=== PATIENT | male | born 1980 | race Caucasian/White ===

== ENCOUNTER 2023-06-20 08:00 | Emergency (ER) | payer SELFPAY ==
[2023-06-20 08:10] VITALS: BP 152/87; PULSE 95; RESP 20; TEMP 36.9; O2SAT 95; BMI 33.1
--- NOTE | 2023-06-20 08:29 | EXP.UTC ---
Discharge Plan Disposition Patient Disposition: Home, Self-Care Condition: Good Prescriptions Prescriptions: New olopatadine [Pataday Once Daily Relief] 0.2 % drops 1 drp ophthalmic (eye) DAILY PRN (Reason: itching) Qty: 2.5 0RF benzonatate 100 mg capsule 100 mg PO TID PRN (Reason: cough) Qty: 30 0RF Referrals Follow up/Referrals: Víctor Lopez [Primary Care Provider] - See instructions Activity Restrictions/Add. Instructions Additional Instructions/Restrictions: May return to work tomorrow. Use medication as directed. Keep hands away from eyes. Clinical Impressions Clinical Impression: Upper respiratory infection, acute, Allergic conjunctivitis of right eye Stand Alone Forms Stand Alone Forms: Work/School Release Instructions Patient Instructions: DI for Viral Upper Respiratory Infection -- Adult, DI for Conjunctivitis Discharge ED Provider: Lindsey Briones [facility] General Stated complaint: possible pink eye Mode of Arrival: Ambulatory Source of Information: Patient Limitations: No Limitations Time Seen by Provider: 06/20/23 08:12 Description of Symptoms (Recalled from Triage Doc. by RN): Pt has itchy, watery, and swollen in right eye. HEENT Symptoms (Recalled from RN notes): Yes Resp Symptoms (Recalled from RN notes): No Skin Symptoms (Recalled from RN notes): No MS Symptoms (Recalled from RN notes): No Functional Status (Recalled from RN notes): n/a History of Present Illness Provider Complaint: Pt relates that he has been sick with cough, congestion and malaise for the past several days and is now feeling better. He reports that his right eye started itching and watering yesterday and is swollen today. Related Data Previous Rx's Medication Instructions Recorded benzonatate 100 mg capsule 100 mg PO TID PRN cough #30 caps 06/20/23 olopatadine 0.2 % eye drops 1 drp ophthalmic (eye) DAILY PRN 06/20/23 (Pataday Once Daily Relief) itching #2.5 mL Allergies Allergy/AdvReac Type Severity Reaction Status Date / Time No Known Allergies Allergy Verified 06/20/23 08:16 Worker's Comp Is this a Worker's Comp case?: No [facility] Disclaimer: The information contained in this section may have been updated after the patient was seen, as this information can be updated by other users. Social History Smoking Status: Current every day smoker alcohol intake: current current occupational status: employed Travel in the last 8 weeks: Inside the [place] ROS Obtained: Yes All systems reviewed & no additional complaints except as documented Constitutional Constitutional: Reports system reviewed and no additional complaints, except as documented and Reports malaise Eyes Eyes: Reports itchy eyes and Reports sensitivity to light ENT Ears, Nose, Mouth, and Throat: Reports system reviewed and no additional complaints, except as documented and Reports nasal discharge Cardiovascular Cardiovascular: Reports system reviewed and no additional complaints, except as documented Respiratory Respiratory: Reports system reviewed and no additional complaints, except as documented Gastrointestinal Gastrointestingal: Reports system reviewed and no additional complaints, except as documented Genitourinary Male Genitourinary: Reports system reviewed and no additional complaints, except as documented Musculoskeletal Musculoskeletal: Reports system reviewed and no additional complaints, except as documented Integumentary/Breasts Skin/Breast: Reports system reviewed and no additional complaints, except as documented Neurologic Neurologic: Reports system reviewed and no additional complaints, except as documented Endocrine Endocrine: Reports system reviewed and no additional complaints, except as documented Hematologic/Lymphatic Henatologic/Lymphatic: Reports system reviewed and no additional complaints, except as documented Allergic/Immunologic Allergic/Immunologic: Reports itchy eyes and Reports seasonal rhinorrhea Physical Exam General General appearance: alert and in no apparent distress Head Head exam: atraumatic and normocephalic Eye Eye exam: Present conjunctival redness, discharge and periorbital swelling Expanded Eye Exam Eyelids: right: swelling eyelids Pupils: Bilateral: regular, round and reactive Expanded ENT Exam External ear exam: Present normal external inspection Nasal speculum exam: Bilateral: normal Mouth exam: Present normal external inspection Teeth exam: Present normal inspection Throat exam: Present normal inspection Neck Neck exam: Present normal inspection; Absent lymphadenopathy Chest Chest inspection: Present normal inspection and symmetric chest wall rise Respiratory Respiratory exam: Present normal lung sounds bilaterally and other (strong cough noted) Cardiovascular Cardiovascular exam: Present regular rate and normal rhythm Abdominal Exam Abdominal exam: Present soft Extremities Exam Extremities exam: Present normal inspection Back Exam Back exam: Present normal inspection Neurological Exam Neurological exam: Present alert and oriented X3 Psychiatric Psychiatric exam: Present normal affect and normal mood Skin Skin exam: Present warm, dry and intact Lymphatic Lymphatic Findings: no adenopathy Medical Decision Making Everardo Inquiry Pt receiving controlled substance: No Everardo was queried for this patient: No Vital Signs: 06/20/23 08:10 Temperature 98.4 F Temperature Source Oral Pulse Rate [Right Radial] 95 H Respiratory Rate 20 Blood Pressure [Right Arm] 152/87 H Blood Pressure Mean [Right Arm] 108 Blood Pressure Source [Right Arm] Automatic Cuff Blood Pressure Position [Right Arm] Sitting 02 Sat by Pulse Oximetry 95 Oxygen Delivery Method Room Air
[2023-06-20 08:43] VITALS: BP 152/87; PULSE 95; RESP 20; TEMP 36.9; O2SAT 95
== END 2023-06-20 08:43 | disposition home or self-care (01) ==
PROVIDERS: Emergency Provider Nurse Practitioner Family; PCP Internal Medicine
DX: H10.11 Acute atopic conjunctivitis, right eye (principal); J06.9 Acute upper respiratory infection, unspecified; R05.9 Cough, unspecified; R09.81 Nasal congestion; F17.210 Nicotine dependence, cigarettes, uncomplicated
CPT/HCPCS: 99204; 99212; G0463

== ENCOUNTER 2023-11-05 21:34 | Emergency (ER) | payer BC, SELFPAY ==
[2023-11-05 21:34] VITALS: BP 137/86; PULSE 104; RESP 20; TEMP 36.6; O2SAT 95; BMI 28.2
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
--- NOTE | 2023-11-05 22:00 | PC.NURSE ---
Pt refuses IV, meds, treatment.
--- NOTE | 2023-11-05 22:03 | PC.NURSE ---
Pts S/O came to nursing station reporting pt wanted to go smoke. Then pt states get me out of this [facility] hospital, i dont know why you brought me here. Pt walked out of ED with S/O and refused to sign AMA form MD Mayer aware.
[2023-11-05 22:09] VITALS: BP 137/86; PULSE 104; RESP 20; TEMP 36.6; O2SAT 95
--- NOTE | 2023-11-05 22:11 | PC.NURSE ---
Upon triage , pt refused IV insertion and medications
--- NOTE | 2023-11-05 22:33 | PC.NURSE ---
chart accessed to cancel imaging orders
== END 2023-11-05 22:10 | disposition left against medical advice (07) ==
PROVIDERS: Emergency Provider Emergency Medicine
DX: S09.90XA Unspecified injury of head, initial encounter (principal); S99.911A Unspecified injury of right ankle, initial encounter; S01.81XA Laceration without foreign body of other part of head, initial encounter; Y09 Assault by unspecified means
CPT/HCPCS: 99282

== ENCOUNTER 2023-11-05 23:40 | Emergency (ER) | payer BC, SELFPAY ==
[2023-11-05 23:51] VITALS: BP 161/100; PULSE 108; RESP 18; TEMP 36.4; O2SAT 95; BMI 28.2
--- NOTE | 2023-11-06 00:06 | XR_ITS ---
PROCEDURE INFORMATION: Exam: XR Right Ankle Exam date and time: 11/06/2023 12:44 AM Age: 43 years old Clinical indication: Injury or trauma; Fall; Swelling (edema); Ankle; Right; Additional info: Fall, pain, swelling TECHNIQUE: Imaging protocol: Radiologic exam of the right ankle. Views: 3 or more views. COMPARISON: CR XR FOOT RT MIN 3V 11/06/2023 12:44 AM FINDINGS: Bones/joints: The ankle mortise is intact. No syndesmotic widening. There is an oblique fracture of the distal fibular diaphysis with minimal lateral displacement distal fragment. Small avulsion injury of the medial malleolus is noted. The talar dome is intact. Soft tissues: Significant circumferential soft tissue swelling of the ankle. IMPRESSION: 1. Oblique fracture of the distal fibular diaphysis. 2. Avulsion injury medial malleolus. 3. Significant soft tissue swelling.
--- NOTE | 2023-11-06 00:06 | CT_ITS ---
PROCEDURE INFORMATION: Exam: CT Cervical Spine Without Contrast Exam date and time: 11/06/2023 12:48 AM Age: 43 years old Clinical indication: Injury or trauma; Fall; Other: Pain; Additional info: Fall, scalp lac, unclear circumstance of injury TECHNIQUE: Imaging protocol: Computed tomography of the cervical spine without contrast. Radiation optimization: All CT scans at this facility use at least one of these dose optimization techniques: automated exposure control; mA and/or kV adjustment per patient size (includes targeted exams where dose is matched to clinical indication); or iterative reconstruction. COMPARISON: CT HEAD/BRAIN WO CON 11/06/2023 12:45 AM FINDINGS: Bones: Cervical vertebrae normal in height. No acute fracture. Mild rightward curvature of the cervicothoracic spine. Maintained craniocervical junction. Mild multilevel degenerative changes. No severe neural foraminal narrowing or spinal canal stenosis. Lungs: Lung apices are normal. Soft tissues: Unremarkable. IMPRESSION: No acute osseous findings.
--- NOTE | 2023-11-06 00:06 | XR_ITS ---
PROCEDURE INFORMATION: Exam: XR Right Tibia and Fibula Exam date and time: 11/06/2023 12:44 AM Age: 43 years old Clinical indication: Injury or trauma; Fall; Swelling (edema); Ankle; Right; Additional info: Fall, pain, swelling TECHNIQUE: Imaging protocol: Radiologic exam of the right tibia and fibula. Views: 2 views. COMPARISON: CR XR ANKLE RT MIN 3V 11/06/2023 12:44 AM FINDINGS: Bones/joints: There is an oblique fracture of the distal fibular diaphysis. There is minimal lateral displacement of distal fragment. There is small osseous fragment adjacent to the inferior medial malleolus consistent with avulsion injury. The knee is normally aligned. Soft tissues: Significant diffuse soft tissue swelling. IMPRESSION: 1. Oblique fracture of the distal fibular diaphysis. 2. Avulsion injury medial malleolus. 3. Significant soft tissue swelling at the level of the ankle.
--- NOTE | 2023-11-06 00:06 | CT_ITS ---
PROCEDURE INFORMATION: Exam: CT Head Without Contrast Exam date and time: 11/06/2023 12:45 AM Age: 43 years old Clinical indication: Injury or trauma; Fall; Other: Pain; Additional info: Fall, scalp lac, unclear circumstance of injury TECHNIQUE: Imaging protocol: Computed tomography of the head without contrast. Radiation optimization: All CT scans at this facility use at least one of these dose optimization techniques: automated exposure control; mA and/or kV adjustment per patient size (includes targeted exams where dose is matched to clinical indication); or iterative reconstruction. COMPARISON: No relevant prior studies available. FINDINGS: Brain: No hemorrhage. Unremarkable white matter. No mass effect. Cerebral ventricles: No ventriculomegaly. Paranasal sinuses: Mild maxillary and left sphenoid sinus mucosal thickening. Bubbly opacities within right maxillary sinus may represent acute sinusitis. Mastoid air cells: Visualized mastoid air cells are well aerated. Bones: Unremarkable. No acute fracture. Soft tissues: Unremarkable. IMPRESSION: No acute intracranial findings.
--- NOTE | 2023-11-06 00:06 | XR_ITS ---
PROCEDURE INFORMATION: Exam: XR Right Foot Exam date and time: 11/06/2023 12:44 AM Age: 43 years old Clinical indication: Injury or trauma; Fall; Other: Pain; Additional info: Fall, pain, swelling TECHNIQUE: Imaging protocol: Radiologic exam of the right foot. Views: 3 or more views. COMPARISON: CR XR ANKLE RT MIN 3V 11/06/2023 12:44 AM FINDINGS: Bones/joints: The foot is normally aligned. No acute fracture. The joint spaces are intact. The ankle is reported separately. Soft tissues: Soft tissue swelling of the hindfoot. IMPRESSION: No acute fracture.
--- NOTE | 2023-11-06 00:51 | HMH.EDGENADL ---
Discharge Plan Disposition Patient Disposition: Home, Self-Care Condition: Good Prescriptions Prescriptions: No Action olopatadine [Pataday Once Daily Relief] 0.2 % drops 1 drp ophthalmic (eye) DAILY PRN (Reason: itching) Qty: 2.5 0RF benzonatate 100 mg capsule 100 mg PO TID PRN (Reason: cough) Qty: 30 0RF Referrals Follow up/Referrals: Niraj Byrne DO [Staff Physician] - See instructions (right fibula fx) Víctor Lopez [Primary Care Provider] - See instructions Activity Restrictions/Add. Instructions Additional Instructions/Restrictions: You were evaluated in the ER and are appropriate for discharge at this time. Do not put anything on the wound on your forehead. The glue will come off on its own. Take Tylenol, ibuprofen if needed for pain, do not exceed the recommended dose on the bottle. Do not put any weight on the splint, use the crutches to get around. Do not get the splint wet. Keep the splint clean and dry. Do not damage it. Follow-up with Dr. Byrne for surgery evaluation. Return to the ER with new, worsening, or otherwise concerning symptoms. Clinical Impressions Clinical Impression: Laceration, Closed right fibular fracture Print Language Print Language: German Discharge ED Provider: Nohemy Davis General Adult HPI General Chief complaint: Extremity Injury, Lower Stated complaint: AO 2030 right leg injury Time Seen by Provider: 11/05/23 23:59 Mode of Arrival: Ambulatory Source of Information: Patient Limitations: No Limitations Description of Symptoms (Recalled from ER Triage Doc. by RN): patient report right ankle pain, patient states he was intoxicated abd does not remeber how the injury took place History of Present Illness HPI narrative: 43-year-old male presents to the ER for right ankle pain and swelling. He reports he was intoxicated and does not remember how the injury took place. He also has injury to the right scalp. Patient reports he does not know how any of this happened. He denies headache, neck pain, dizziness, numbness, tingling, weakness. He states he has pain in the right ankle, especially on the medial aspect. He is able to move the foot and toes distal to the pain. Patient eloped from the ER earlier when he was previously evaluated for these symptoms. He had not had any imaging at the time of his elopement. He states his made him come back. Related Data Previous Rx's ?Medication ?Instructions ?Recorded benzonatate 100 mg capsule 100 mg PO TID PRN cough #30 caps 06/20/23 olopatadine 0.2 % eye drops 1 drp ophthalmic (eye) DAILY PRN 06/20/23 (Pataday Once Daily Relief) itching #2.5 mL Allergies Allergy/AdvReac Type Severity Reaction Status Date / Time No Known Allergies Allergy Verified 06/20/23 08:16 [facility] Disclaimer: The information contained in this section may have been updated after the patient was seen, as this information can be updated by other users. Social History (Updated 06/20/23 @ 08:41 by Lindsey Briones APRN) Smoking Status: Current every day smoker alcohol intake: current current occupational status: employed Travel in the last 8 weeks: Inside the [place] ROS Obtained: Yes All systems reviewed & no additional complaints except as documented Positive ROS per HPI Physical Exam General General appearance: alert and in no apparent distress Head Head exam: normocephalic and other (1 cm laceration over the right voodoo, hemostatic) Eye Eye exam: Present PERRL and EOMI ENT ENT exam: Present mucous membranes moist Neck Neck exam: Present normal inspection and full ROM Chest Chest inspection: Present symmetric chest wall rise Respiratory Respiratory exam: Present normal lung sounds bilaterally; Absent respiratory distress, wheezes or stridor Cardiovascular Cardiovascular exam: Present regular rate and normal rhythm Abdominal Exam Abdominal exam: Present soft; Absent distention or tenderness Extremities Exam Extremities exam: Present tenderness, joint swelling and other (Tenderness, pain, swelling of the right ankle, tenderness on both the medial and lateral aspects superior to the malleoli. Neurovascularly intact distally.); Absent calf tenderness Back Exam Back exam: Absent tenderness Neurological Exam Neurological exam: Present alert, oriented X3 and CN II-XII intact; Absent normal gait (Ambulating with a limp, favoring right ankle) or motor sensory deficit Psychiatric Psychiatric exam: Present normal affect and normal mood Skin Skin exam: Present warm and dry Medical Decision Making Medical Records Medical records reviewed: Yes I reviewed the patient's medical records. MR Comment: Patient eloped from the ER few hours ago. Everardo Inquiry Pt receiving controlled substance: No Vital Signs: 08/18/24 23:51 Temperature 97.5 F L Temperature Source Oral Pulse Rate [Right] 108 H Respiratory Rate 18 Blood Pressure [Right Arm] 161/100 H Blood Pressure Mean [Right Arm] 120 02 Sat by Pulse Oximetry 95 Orders (Tests/Meds): ORDERS Category Date Time Status CT cervical spine wo con Stat Cat Scan 11/06/23 00:[address] head/brain wo con Stat Cat Scan 11/06/23 00:06 Completed Ankle XR -Right minimum 3 Views [XR ankle RT min 3V] Exams 11/06/23 00:06 Taken Stat Fibula/tibia XR right 2 views [XR tibia fibula RT 2V] Exams 11/06/23 00:06 Taken Stat Foot XR right minimum 3 views [XR foot RT min 3V] Stat Exams 11/06/23 00:06 Taken Medical Decision Narrative: In summary, this 43-year-old male with with a history of hypertension which is a comorbidity of current condition and increases overall morbidity presents to the emergency department today with right ankle pain, swelling, laceration to the right scalp. On initial evaluation patient is hemodynamically stable, afebrile, GCS 15, alert, oriented, swelling, pain of the right ankle, neurovascularly intact distally, laceration to the right voodoo. Differential diagnosis includes but is not limited to intracranial bleed, cervical spine injury, skull fracture, laceration, fracture, dislocation. On full exam I do not appreciate other findings of traumatic injury. Based on these concerns, I ordered CT head and C-spine, x-ray right lower extremity. Patient was adamant about not receiving an IV or any medication at this time. I believe this is appropriate X-ray of the right lower extremity personally interpreted demonstrates displaced right distal fibula fracture. I consulted Dr. Byrne and discussed these images with him. He recommended posterior slab splint with outpatient follow-up for surgical evaluation. Splint was applied. See procedure note for details. CT head personally interpreted does not demonstrate acute intracranial abnormality, CT cervical spine without acute traumatic injury. See radiology read for final interpretation. Laceration was repaired. Patient reports he received a Tdap approximately 1.5 years ago when he had another laceration. Booster is not necessary today. Patient is appropriate for discharge at this time. He states he does not need any pain medications. Patient was given instructions on symptomatic management, follow up instructions, and return precautions for the emergency department. Patient indicated understanding and was discharged in stable condition. Procedures Laceration Laceration 1: Site: face (Right voodoo) Side (If applicable): right Size (cm): 1 Description: linear Depth: simple, single layer Pre-repair: wound explored (And cleaned with saline) Skin layer closed with: Dermabond Orthopedic Splinting/Casting Injury #1: Side: right Lower Extremity Injury Location: lower leg Lower Extremity Immobilizer: posterior splint Additional Comments: Soft roll, plaster, Josh wrap used to apply posterior splint which was personally applied and adjusted by me. Neurovascularly intact before and after procedure. Post Cast/Splinting Neuro Status: intact and no change Post Cast/Splinting Vasc Status: intact and no change Critical Care Critical Care Time Critical Care Time: No
--- NOTE | 2023-11-06 01:59 | PC.NURSE ---
0130: Dr. Davis at bedside, placed a posterior splint to patients right leg.
--- NOTE | 2023-11-06 02:00 | PC.NURSE ---
0150: Pt. provided with crutches prior to discharge. Pt. also had a small laceration to the right forehead. After wound being cleaned, wound glued shut by Dr. Davis.
[2023-11-06 02:04] VITALS: BP 161/115; PULSE 107; RESP 20; TEMP 36.8; O2SAT 96
== END 2023-11-06 01:55 | disposition home or self-care (01) ==
PROVIDERS: Emergency Provider Emergency Medicine; PCP Internal Medicine
DX: S82.431A Displaced oblique fracture of shaft of right fibula, initial encounter for closed fracture (principal); S82.51XA Displaced fracture of medial malleolus of right tibia, initial encounter for closed fracture; S01.81XA Laceration without foreign body of other part of head, initial encounter; Y09 Assault by unspecified means
CPT/HCPCS: 29515; 12011; 70450; 72125; 73590; 73610; 73630; 99285

== ENCOUNTER 2023-11-07 14:38 | Outpatient (CLI) | payer BC, SELFPAY ==
[2023-11-07 15:04] LABS: Basophils # 0.1 K/mm3 (0-0.2); Basophils % 2.2 % (0.1-2.0); Eosinophils # 0.2 K/mm3 (0.0-0.4); Eosinophils % 3.3 % (0.1-12.0); Hematocrit 54.3 % (42.0-52.0); Hemoglobin 17.9 g/dL (14.1-18.0); Lymphocytes # 1.7 K/mm3 (0.7-4.5); Lymphocytes % 27.8 % (10-50); Mean Corpuscular HGB Conc 32.9 g/dL (31.8-35.4); Mean Corpuscular Hemoglobin 32.4 pg (27.0-31.2); Mean Corpuscular Volume 98.4 fl (80-94); Mean Platelet Volume 8.7 fl (7.4-10.4); Monocytes # 0.4 K/mm3 (0.1-1.0); Neutrophils # 3.8 K/mm3 (1.8-7.8); Neutrophils % 60.7 % (37.0-80.0); Platelet Count 284 K/mm3 (142-424); Red Blood Count 5.51 M/mm3 (4.60-6.20); Red Cell Distribution Width 14.1 % (11.5-17.5); White Blood Count 6.2 K/mm3 (4.8-10.8)
[2023-11-07 15:49] LABS: Alanine Aminotransferase 32 U/L (12-78); Albumin Level 4.1 g/dl (3.5-5.0); Albumin/Globulin Ratio 1.5 (1.1-1.8); Alkaline Phosphatase 83 U/L (38-126); Anion Gap 9.5 mEq/L (5-15); Aspartate Amino Transferase 31 U/L (17-59); Bilirubin,Total 0.9 mg/dl (0.2-1.3); Blood Urea Nitrogen 8 mg/dl (9-20); Calcium 9.4 mg/dl (8.4-10.2); Carbon Dioxide 25 mmol/L (22.0-30.0); Chloride 107 mmol/L (98-107); Estimated Glomerular Filt Rate 93 ml/min (>60); GFR (African American) 113 ML/MIN (>60); Globulin 2.7 g/dL (1.3-3.2); Glucose 134 mg/dl (74-100); Potassium 4.5 mmoL/L (3.5-5.1); Sodium 137 mmol/L (136-145); Total Protein,Serum 6.8 g/dl (6.3-8.2)
== END 2023-11-07 23:59 | disposition home or self-care (01) ==
LOC: LAB 14:39
PROVIDERS: PCP Internal Medicine; Visit Provider Orthopaedic Surgery
DX: S82.61XA Displaced fracture of lateral malleolus of right fibula, initial encounter for closed fracture (principal)
CPT/HCPCS: 36415; 80053; 85025

== ENCOUNTER 2023-11-13 06:09 | Day surgery (SDC) | payer BC, SELFPAY ==
[2023-11-09 14:55] VITALS: BMI 28.2
--- NOTE | 2023-11-10 12:29 | SUR.PREOP ---
Notified Daisha in Dr. Byrne's office that we need orders for Mondays procedure but she stated that there are no providers in the office today, will have to wait until monday.
--- NOTE | 2023-11-10 12:32 | SUR.PREOP ---
TC with pt to come in at 0600 11/13/[address] Byrne. Verbalized could do that.
[2023-11-13] VITALS (11 sets, daily range): BP systolic 124–156; BP diastolic 76–98; PULSE 92–98; RESP 16–18; TEMP 36.5–36.9; O2SAT 91–96
--- NOTE | 2023-11-13 06:56 | EXP.ANES.CKL ---
[facility] Disclaimer: The information contained in this section may have been updated after the patient was seen, as this information can be updated by other users. Medical History Hypertension Surgical History History of arthroscopy of knee Family History Other No significant family history Social History Smoking Status: Current every day smoker alcohol intake: current substance use type: denies use current occupational status: employed Travel in the last 8 weeks: None [facility] Anesthesia Checklist Patient Identification Patient Identification: Arm Band and Verbal (Name & ) Structural Data Admitted From: Home Planned Operative Procedure/s: ORIF malleolus fracture Consent for Planned Operative Procedure(s) Verified: Yes Verified Documents: Surgical Consent and History and Physical NPO Status Verified Time NPO: 00:00 Chart Verification Results Verified: CBC and BMP Additional verifications Anesthesia Reactions: No Hx Blood Transfusions: No Blood Transfusion Reaction: No Airway Assessment Mallampati Score:: Class III C-Spine Mobility Assessed: Yes TMJ Mobility Assessed: Yes Dentition: Good Dentition Neurological Assessment Level of Consciousness: Awake Hx Seizures: No Numbness or tingling in extremities: No Anesthesia Plan Anesthesia Risk discussed: Yes Anesthesia Plan: Verified ASA Class: II Anesthesia Type: General w/block
--- NOTE | 2023-11-13 09:09 | XR_ITS ---
FINAL REPORT CLINICAL HISTORY: ORIF lateral malleolus fx 0.9 min 2.53 mGy FINDINGS: 3 fluoroscopic spot films were obtained of ORIF of the right ankle. 0.9 seconds of fluoroscopy time was reported. 2.53 mGy. IMPRESSION: 0.9 seconds of fluoroscopy with 2.53 mGy for ORIF of the right ankle. Reviewed, Interpreted and Dictated by Manohar Lee MD Transcribed by Keyla Watson Authenticated and [facility]
--- NOTE | 2023-11-13 09:20 | EXP.OP.NOTE ---
Date of procedure: 11/13/23 Pre-op Diagnosis:: Right ankle lateral malleolus fracture Post-op Diagnosis:: Same Procedure performed:: Open reduction internal fixation right lateral malleolus Surgeon:: Niraj Byrne DO SOFTWARE DEVELOPMENT ADVISOR:: Elder Doyle Anesthesia: GETA and regional Estimated blood loss (mL): 5 Clinical Note:: Implants Arthrex fibular plates and screws Operative findings:: Interoperative live x-ray testing cotton test negative for disruption of the syndesmosis Operative note:: Patient identified preoperatively. Right ankle marked with yes and my initials. Underwent a block with anesthesia. Taken the operating room placed upon operating bed. General anesthesia was administered and airway was secured. Right lower extremity was then prepped and draped normal sterile fashion. Once prepped and draped final operative timeout performed to identify proper patient procedure and extremity. Everyone involved in the case agreed. No counter indications to beginning. Did receive preoperative antibiotics. Marking pen was used to carlos the bony landmarks of the ankle and proposed incision. Esmarch was used to exsanguinate the extremity pneumatic tourniquet inflated to 300 mmHg. Skin knife was used incise through skin dissection was taken down to the fracture site over the lateral malleolus. Large fracture hematoma present and evacuated. The edges of the fracture were then cleaned. And reduction was performed with traction and the help of a lobster claw. Anatomic reduction of the fibula fracture was obtained and temporarily held with a wire. Arthrex fibular plate was selected and placed on the bone. Held with a olive-tipped K wire. The distal locking screws were then placed followed by proximal screws. This was a oblique shear fracture with shelling of the distal fragment making it impossible to place a lag screw. Fracture reduction was maintained to placement of the screws. And then live x-ray viewing with the help of a [id number] clamp negative cotton test was demonstrated for gapping of the syndesmosis. Irrigation of the wound was performed. Deep layers closed with 0 Vicryl subcutaneous 2-0 Vicryl 3-0 nylon the skin. Patient then placed in a posterior splint. Waken anesthesia taken recovery in stable condition. Condition: stable Disposition: PACU Complications:: None apparent
--- NOTE | 2023-11-13 09:36 | P.PNANES_ITS ---
[facility] Anesthesia Record Part I Anesthesia Record I Intake, IV Amount: 1,100 Hydration: Adequate Estimated blood loss (mL): 5 Urine output (mL): 0 Blood Products used (#): none Blood Pressure: 146/98 SaO2: 92 Pulse Rate: 92 Airway Patency: Patent Respiratory Rate: 16 Temperature: 98.2 F Patient is:: Drowsy and Stable Stable to PACU at:: 09:35
--- NOTE | 2023-11-13 12:11 | EXP.ANES.II ---
[facility] Anesthesia Record Part II Anesthesia Record Part II Discharge Time: 10:05 Destination: Surgical Day Care (OP Surgery) PACU nurse assessment reviewed?: Yes Patient Condition:: Good Anesthesia Complications:: None Swallowing reflex intact?: Yes Airway Patency: Patent Cyanosis?: No Blood Pressure: 133/76 SaO2: 94 Respiratory Rate: 16 Pulse Rate: 92 Temperature: 97.7 F Mental Status: Alert & Oriented Pain level:: 0 Nausea and/or vomitting:: None Intake, IV Amount: 0 Hydration: Adequate
== END 2023-11-13 10:36 | disposition home or self-care (01) ==
PROVIDERS: Visit Provider Orthopaedic Surgery
PROC: (CPT 27792; principal; 2023-11-13 07:30)
DX: S82.61XA Displaced fracture of lateral malleolus of right fibula, initial encounter for closed fracture (principal)
CPT/HCPCS: 27792; 73600; 76000; C1713; C1776; J1100; J2250; J2405; J3010; J7120

== ENCOUNTER 2023-11-28 10:01 | Outpatient (CLI) | payer BC, SELFPAY ==
--- NOTE | 2023-11-28 10:06 | XR_ITS ---
FINAL REPORT CLINICAL HISTORY: RIght ankle ORIF COMPARISON: Intraoperative films dated 11/13/2023 FINDINGS: RIGHT ANKLE: Three views of the right ankle were obtained. The patient is post ORIF of the distal fibula with a orthopedic plate and screws bridging a distal tibial metaphyseal fracture. The joint spaces and mortise are intact. There is a small calcification inferior to the medial malleolus, which may represent a fracture fragment of uncertain age. IMPRESSION: Post-ORIF of the distal fibula as described above. Small calcification inferior to the medial malleolus, may represent a fracture fragment of uncertain age. Reviewed, Interpreted and Dictated by Rogelio Galeana III, MD Transcribed by Alicia Cobb Authenticated and [facility]
== END 2023-11-28 23:59 | disposition home or self-care (01) ==
LOC: RAD 10:03
PROVIDERS: PCP Internal Medicine; Visit Provider Orthopaedic Surgery
DX: S82.841A Displaced bimalleolar fracture of right lower leg, initial encounter for closed fracture (principal)
CPT/HCPCS: 73610

== ENCOUNTER 2023-12-26 10:06 | Outpatient (CLI) | payer BC, SELFPAY ==
--- NOTE | 2023-12-26 10:13 | XR_ITS ---
FINAL REPORT CLINICAL HISTORY: Acute right ankle pain, recent surgery. COMPARISON: November 28, 2023. FINDINGS: RIGHT ANKLE 3 views of the right ankle were obtained. There are postoperative changes of the fibula. There is a subacute distal fibular fracture. This is not significantly changed from prior. There is mild and moderate degenerative change. A plantar calcaneal spur is identified. There is soft tissue swelling. Chronic calcification inferior to the medial malleolus is stable. IMPRESSION: Postoperative change. No change from prior. Reviewed, Interpreted and Dictated by Rogelio Galeana III, MD Transcribed by Osiris Lee PA-C Authenticated and [facility]
== END 2023-12-26 23:59 | disposition home or self-care (01) ==
LOC: RAD 10:08
PROVIDERS: PCP Internal Medicine; Visit Provider Orthopaedic Surgery
DX: M25.571 Pain in right ankle and joints of right foot (principal); S82.841A Displaced bimalleolar fracture of right lower leg, initial encounter for closed fracture; Z98.890 Other specified postprocedural states
CPT/HCPCS: 73610

== ENCOUNTER 2024-01-14 15:31 | Emergency (ER) | payer BC, SELFPAY ==
[2024-01-14] VITALS (7 sets, daily range): BP systolic 104–147; BP diastolic 62–99; PULSE 55–139; RESP 20–32; TEMP 36.7–37.2; O2SAT 71–92; BMI 38.5
[2024-01-14] MEDS: 0.9 % SODIUM CHLORIDE 1000ML 1,000 ML 999 ML IV (15:14)
[2024-01-14] MEDS: ETOMIDATE 40MG/20ML VIAL 40 MG IV (15:17)
[2024-01-14] MEDS: FENTANYL 250MCG/5ML VIAL 50 MCG IV (15:20)
[2024-01-14] MEDS: ROCURONIUM BROMIDE 50MG/5ML VIAL 100 MG IV (15:21)
--- NOTE | 2024-01-14 15:25 | PC.NURSE ---
initiated emergent blood. @[id number]
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
--- NOTE | 2024-01-14 15:34 | PC.NURSE ---
called helicopter for standby until acceptance to .
--- NOTE | 2024-01-14 15:36 | PC.NURSE ---
Dr. Mayer speaking with Dr. Diaz at [facility]
--- NOTE | 2024-01-14 15:38 | PC.NURSE ---
[facility] [address] [facility] for stand by at this time.
[2024-01-14] MEDS: SODIUM CHLORIDE 3 % 250 ML 999 ML IV (15:40)
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
--- NOTE | 2024-01-14 16:23 | PC.NURSE ---
report called to Marie @[facility]
== END 2024-01-14 16:39 | disposition short-term general hospital (02) ==
PROVIDERS: Emergency Provider Emergency Medicine
DX: S01.03XA Puncture wound without foreign body of scalp, initial encounter (principal); S01.93XA Puncture wound without foreign body of unspecified part of head, initial encounter; R41.89 Other symptoms and signs involving cognitive functions and awareness; Y93.89 Activity, other specified; Y92.9 Unspecified place or not applicable
CPT/HCPCS: 31500; 36620; 71045; 86850; 96361; 96374; 99291; 99292; J3010; J7030; P9016